=== PATIENT | female | born 1995 | race American Indian/Alaskan Native ===

== ENCOUNTER 2018-12-27 12:32 | Outpatient (CLI) | payer MEDICAID | END 2018-12-27 15:11 | disposition home or self-care (01) | LOC: LAB 12:32 → TRG 14:33 → LAB 15:11 | PROVIDERS: ATTEND Obstetrics & Gynecology | DX: O26.893 Other specified pregnancy related conditions, third trimester (principal); Z67.41 Type O blood, Rh negative; Z3A.26 26 weeks gestation of pregnancy | CPT/HCPCS: 86850; 86900; 86901; 96372; J2790 ==

== ENCOUNTER 2019-03-30 08:29 | Inpatient (IN) | payer MEDICAID ==
[2019-03-30] MEDS ORDERED: NARCAN 0.4 MG/1 ML IV PRN (10:32)
[2019-03-30] MEDS ORDERED: ZOFRAN IV PRN (10:32)
[2019-03-30] MEDS ORDERED: MINERAL OIL PO PRN (10:32)
[2019-03-30] MEDS ORDERED: XYLOCAINE 2% INFILTRATI ONE (10:32)
[2019-03-30] MEDS ORDERED: BRETHINE IVP PRN (10:32)
[2019-03-30] MEDS ORDERED: BRETHINE SUB-Q PRN (10:32)
[2019-03-30] MEDS ORDERED: AMPICILLIN/NS 2 GM/100 ML 2 GM/100 ML BAG IV ONE (10:37)
--- NOTE | 2019-03-30 10:38 | History and Physical Report ---
History of Present Illness Date of examination: 03/30/19 Date of admission: 03/30/19 08:29 Chief complaint: Presents for scheduled postdates induction of labor History of present illness: Late entry to care at 22 2/7 weeks, course complicated by RH neg (received Rhogam 12/28/18), Anemia, and Vitamin D Deficiency. 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) Family/Genetic History: heart disease, hypertension, cancer Social history: no significant social history, single, smoking (hx of THC use) - Obstetrical History Expected Date of Delivery: 03/21/19 Actual Gestation: 41 Week(s) 2 Day(s) : 3 Induced : 2 Medications and Allergies Allergies Allergy/AdvReac Type Severity Reaction Status Date / Time No Known Allergies Allergy Unverified 12/27/18 14:59 Home Medications Medication Instructions Recorded Confirmed Last Taken Type No Known Home Medications [No 12/27/18 12/27/18 Unknown History Reported Home Medications] - Vital Signs Vital signs: Vital Signs Pulse BP 72 122/68 03/30/19 09:06 03/30/19 09:06 Temp Pulse Resp BP Pulse Ox 72 122/68 03/30/19 09:06 03/30/19 09:06 - Physical Exam Breasts: Positive: normal Cardiovascular: Regular rate Lungs: Positive: Clear to auscultation, Normal air movement Abdomen: Positive: normal appearance, soft, normal bowel sounds Genitourinary (Female): Positive: normal external genitalia, normal perenium Vagina: Positive: normal moisture Uterus: Positive: enlarged Anus/Rectum: Positive: normal perianal skin Extremities: Positive: normal - Obstetrical FHR: category 1 Uterine Contraction Monitor Mode: External Cervical Dilatation: 1 Cervical Effacement Percentage: 60 station: -3 Uterine Contraction Pattern: Absent Uterine Tone Measurement Phase: Resting Results All other labs normal. Assessment and Plan A: IUP @ 41 2/7 Weeks Category I Tracing GBS Positive P: Admit to L&D per Routine Orders Cervidil Induction GBS Prophylaxis
[2019-03-30] MEDS ORDERED: PITOCin/NS 20 UNIT/1000ML DRIP 20 UNITS/1,000 ML BAG IV SCH (11:00)
[2019-03-30] MEDS ORDERED: CERVIDIL VG ONE (11:00)
[2019-03-30 11:03] LABS: Hematocrit 32.6 % (30.3-42.9); Hemoglobin 10.8 gm/dl (10.1-14.3); Mean Corpuscular HGB Conc 33 % (30-34); Mean Corpuscular Volume 80 fl (79-97); Platelet Count 192 K/mm3 (140-440); Red Blood Count 4.06 M/mm3 (3.65-5.03); Red Cell Distribution Width 16.2 % (13.2-15.2)
[2019-03-30] MEDS: LACTATED RINGERS 1,000 ML IV SCH (14:45)
--- NOTE | 2019-03-30 18:00 | Progress Note ---
Assessment and Plan A: IUP @ 41 2/7 Weeks Category I Tracing GBS Positive P: Continue Cervidil Induction Continue GBS Prophylaxis Subjective - Subjective Date of service: 03/30/19 Interval history: Late entry to care at 22 2/7 weeks, course complicated by RH neg (received Rhogam 12/28/18), Anemia, and Vitamin D Deficiency. Patient reports: movement normal Objective - Vital Signs Vital Signs: Vital Signs - 12hr 03/30/19 09:06 Pulse Rate 72 Blood Pressure 122/68 - Exam Cardiovascular: Regular rate Abdomen: Present: normal appearance, soft Uterus: Present: normal, firm, fundal height above umbilicus FHR: category 1 Uterine Contraction Monitor Mode: External Uterine Contraction Frequency (min): 1-3 Uterine Contraction Pattern: Regular Uterine Tone Measurement Phase: Resting Uterine Contraction Intensity: Mild Extremities: normal - Labs Labs: Abnormal Labs 03/30/19 10:45 MCH 27 L RDW 16.2 H Laboratory Results - last 24 hr 03/30/19 03/30/19 03/30/19 10:45 10:45 Unknown WBC 11.0 RBC 4.06 Hgb 10.8 Hct 32.6 MCV 80 MCH 27 L MCHC 33 RDW 16.2 H Plt Count 192 RPR Nonreactive Blood Type O NEGATIVE Antibody Screen Negative
[2019-03-30] MEDS: AMPICILLIN/NS 1 GM/50 ML 1 GM/50 ML BAG IV SCH (19:36)
[2019-03-31] MEDS ORDERED: PITOCin/NS 30 UNIT/500ML 30 UNITS/500 ML BAG IV SCH (01:00)
[2019-03-31] MEDS: STADOL IV PRN ×2 (03:16→07:28)
[2019-03-31] MEDS: AMPICILLIN/NS 1 GM/50 ML 1 GM/50 ML BAG IV SCH ×3 (03:19→12:56)
[2019-03-31] MEDS: LACTATED RINGERS 1,000 ML IV SCH ×2 (05:49→12:57)
--- NOTE | 2019-03-31 07:26 | Progress Note ---
Assessment and Plan A: IUP @ 41 3/7 Weeks Category I Tracing GBS Positive P: AROM Continue Pitocin Augmentation Continue GBS Prophylaxis Subjective - Subjective Date of service: 03/31/19 Interval history: Late entry to care at 22 2/7 weeks, course complicated by RH neg (received Rhogam 12/28/18), Anemia, and Vitamin D Deficiency. Patient reports: movement normal, contractions Objective - Vital Signs Vital Signs: Vital Signs - 12hr 03/31/19 03/31/19 03/31/19 03:16 03:29 04:16 Pulse Rate 76 Respiratory 18 18 Rate Blood Pressure 128/66 03/31/19 07:13 Pulse Rate 72 Respiratory Rate Blood Pressure 133/62 - Exam Breasts: normal Cardiovascular: Regular rate Lungs: Normal air movement Abdomen: Present: normal appearance, soft Uterus: Present: normal, firm, fundal height above umbilicus FHR: category 1 Uterine Contraction Monitor Mode: External Cervical Dilatation: 4 (Small amount of clear fluid upon AROM @ 0710) Cervical Effacement Percentage: 70 station: -2 Uterine Contraction Pattern: Regular Uterine Tone Measurement Phase: Resting Uterine Contraction Intensity: Moderate Extremities: normal - Labs Labs: Abnormal Labs 03/30/19 10:45 MCH 27 L RDW 16.2 H Laboratory Results - last 24 hr 03/30/19 03/30/19 03/30/19 10:45 10:45 Unknown WBC 11.0 RBC 4.06 Hgb 10.8 Hct 32.6 MCV 80 MCH 27 L MCHC 33 RDW 16.2 H Plt Count 192 RPR Nonreactive Blood Type O NEGATIVE Antibody Screen Negative
[2019-03-31] MEDS ORDERED: MARCAINE 0.25% INFILTRATI ONE (09:02)
[2019-03-31] MEDS ORDERED: SUBLIMAZE ONE (09:02)
[2019-03-31] MEDS ORDERED: NARCAN 2 MG/2 ML IV PRN (09:58)
--- NOTE | 2019-03-31 10:01 | Anesthesia Consultation ---
Anesthesia Consult and Med Hx Date of service: 03/31/19 - Airway Anesthetic Teeth Evaluation: Good ROM Head & Neck: Adequate Mental/Hyoid Distance: Adequate Mallampati Class: Class II - Pulmonary Exam CTA: Yes - Cardiac Exam Cardiac Exam: RRR - Pre-Operative Health Status ASA Pre-Surgery Classification: ASA2, Emergency Proposed Anesthetic Plan: Epidural - Pulmonary Hx Asthma: No - Cardiovascular System Hx Hypertension: No - Central Nervous System Hx Seizures: No Hx Psychiatric Problems: No - Endocrine Hx Renal Disease: No Hx Hypothyroidism: No Hx Hyperthyroidism: No - Hematic Hx Anemia: No Hx Sickle Cell Disease: No - Other Systems Hx Alcohol Use: Yes (not during )
[2019-03-31] MEDS ORDERED: fentaNYL-BUPIV 2 MCG/ML-0.125% 200 MCG/100 ML BAG EPIDURAL SCH (11:00)
[2019-03-31] MEDS ORDERED: METHERGINE IM ONE ×2 (14:57→17:44)
[2019-03-31] MEDS ORDERED: CYTOTEC ONE (14:58)
[2019-03-31] MEDS ORDERED: BENADRYL PO PRN (15:18)
[2019-03-31] MEDS ORDERED: TUCKS PAD TP PRN (15:18)
[2019-03-31] MEDS ORDERED: LANSINOH TP PRN (15:18)
[2019-03-31] MEDS ORDERED: DULCOLAX PR PRN (15:18)
[2019-03-31] MEDS ORDERED: TYLENOL PO PRN (15:18)
--- NOTE | 2019-03-31 15:26 | Procedure Note ---
OB Delivery Note - Delivery Date of Delivery: 03/31/19 (1450) Surgeon: MIKE BURNHAM Estimated blood loss: other (350) - Vaginal Delivery presentation: vertex Delivery position: OA Intrapartum events: extend. bradycardia, mult.variable deceleratio Delivery induction: cervidil Delivery augmentation: rupture of membranes, pitocin Delivery monitor: external FHT, external uterine Route of delivery: Delivery placenta: spontaneous Delivery cord: 3 umbilical vessels Episiotomy: none Delivery laceration: 1st degree Delivery repair: vicryl Anesthesia: epidural Delivery comments: of a live 7'7 female infant over a 1st degree vaginal laceration under epidural anesthesia with Apgars of 8 and 9 at 1450 on 03/31/2019. Infant directly to maternal abd/chest, skin to skin contact. Spontaneous delivery of placenta complete and intact with [place] side presenting@ 1454. Heavy uterine bleeding upon external uterine massage, 800mcg of Cytotec placed per rectum, Methergine 0.2mg given IM. Bleeding became scant. Vaginal laceration repaired with 2-[address]-1. Delayed cord clamping and cutting; Cord cut by Father of the baby. Cord blood collected. GBS prophylaxis x 5. Placenta discarded. - B at 1 minute: 8 at 5 minutes: 9 Gender: Female (7'7)
[2019-03-31] MEDS ORDERED: SODIUM CHLORIDE FLUSH SYRINGE 10 ML IV SCH (16:00)
--- NOTE | 2019-03-31 16:56 | Post Anesthesia Evaluation ---
- Post Anesthesia Evaluation Patient Participated: Yes Airway Patent: Yes Stable Respiratory Function: Yes Nausea/Vomiting: No Temp > 96.8F: Yes Pain Manageable: Yes Adequeate Hydration: Yes Anesthesia Complications: No Block Receding Appropriately: Yes Patient on Ventilator: No
[2019-03-31] MEDS ORDERED: CYTOTEC PR ONE (17:43)
[2019-03-31] MEDS: IBUPROFEN PO SCH (22:13)
[2019-04-01] MEDS: IBUPROFEN PO SCH ×4 (00:28→20:23)
[2019-04-01] MEDS: NORCO 5/325 PO PRN (02:16)
[2019-04-01 06:00] LABS: Hematocrit 29.6 % (30.3-42.9); Hemoglobin 9.7 gm/dl (10.1-14.3)
--- NOTE | 2019-04-01 11:11 | Progress Note ---
Assessment and Plan - Patient Problems (1) (normal spontaneous vaginal delivery) Current Visit: Yes Status: Acute Plan to address problem: Continue routine PP orders Anticipate d/c home in 24 hrs (2) Anemia Current Visit: Yes Status: Acute Qualifiers: Anemia type: iron deficiency Iron deficiency anemia type: inadequate dietary iron intake Qualified Code(s): D50.8 - Other iron deficiency anemias Subjective - Subjective Date of service: 04/01/19 (1110) Principal diagnosis: ; Anemia Interval history: See admission H & P; OB delivery summary Patient reports: appetite normal, voiding normally, pain well controlled, flatus, ambulating normally, no bowel movement [place]: doing well, bottle feeding (and ) Objective - Vital Signs Latest vital signs: Vital Signs Temp Temp Temp Pulse Resp BP BP 04/01/19 08:12 97.7 F 77 18 111/60 04/01/19 06:46 18 04/01/19 05:46 18 04/01/19 04:41 78 04/01/19 03:16 18 04/01/19 02:16 18 04/01/19 00:28 97.5 F L 18 102/58 04/01/19 00:23 97.9 F 82 18 128/71 03/31/19 23:13 18 03/31/19 22:13 18 03/31/19 20:45 79 03/31/19 20:43 98.0 F 20 138/70 03/31/19 16:30 64 20 115/63 03/31/19 16:22 76 132/77 03/31/19 16:07 83 129/75 03/31/19 15:44 99.6 F 100.2 F H 162 H 57 H 03/31/19 15:37 88 121/71 03/31/19 15:23 98.6 F 03/31/19 15:21 92 H 122/65 03/31/19 15:12 107 H 123/68 03/31/19 15:07 107 H 122/58 03/31/19 14:52 136 H 132/60 03/31/19 14:50 140 H 03/31/19 14:45 140 H 03/31/19 14:37 109 H 136/70 03/31/19 14:23 93 H 135/79 03/31/19 14:08 88 138/70 03/31/19 13:51 96 H 138/71 03/31/19 13:37 91 H 130/73 03/31/19 13:22 101 H 132/60 03/31/19 13:07 107 H 120/64 03/31/19 12:52 96 H 131/60 03/31/19 12:38 85 128/57 03/31/19 12:21 88 122/58 03/31/19 12:12 84 03/31/19 12:07 84 119/56 03/31/19 12:02 84 03/31/19 11:57 79 03/31/19 11:53 76 123/56 03/31/19 11:52 77 03/31/19 11:47 88 03/31/19 11:42 96 H 03/31/19 11:38 64 119/59 03/31/19 11:37 71 03/31/19 11:32 67 03/31/19 11:27 73 03/31/19 11:22 71 119/59 03/31/19 11:17 79 03/31/19 11:12 80 Pulse Ox 04/01/19 08:12 98 04/01/19 06:46 04/01/19 05:46 04/01/19 04:41 98 04/01/19 03:16 04/01/19 02:16 04/01/19 00:28 04/01/19 00:23 95 03/31/19 23:13 03/31/19 22:13 03/31/19 20:45 97 03/31/19 20:43 03/31/19 16:30 03/31/19 16:22 03/31/19 16:07 03/31/19 15:44 03/31/19 15:37 03/31/19 15:23 03/31/19 15:21 03/31/19 15:12 03/31/19 15:07 03/31/19 14:52 03/31/19 14:50 89 03/31/19 14:45 100 03/31/19 14:37 03/31/19 14:23 03/31/19 14:08 03/31/19 13:51 03/31/19 13:37 03/31/19 13:22 03/31/19 13:07 03/31/19 12:52 03/31/19 12:38 03/31/19 12:21 03/31/19 12:12 89 03/31/19 12:07 94 03/31/19 12:02 94 03/31/19 11:57 99 03/31/19 11:53 03/31/19 11:52 97 03/31/19 11:47 98 03/31/19 11:42 98 03/31/19 11:38 03/31/19 11:37 97 03/31/19 11:32 97 03/31/19 11:27 96 03/31/19 11:22 99 03/31/19 11:17 98 03/31/19 11:12 98 Intake and Output 03/31/19 04/01/19 04/01/19 23:59 07:59 15:59 Output Total 900 Balance -900 Output: Urine 900 Void 900 Other: Total, Output Amount 900 # Voids Void 1 - Exam Breasts: Present: normal Cardiovascular: Present: Regular rate Lungs: Present: Normal air movement Abdomen: Present: soft, normal bowel sounds Uterus: Present: firm, fundal height below umbilicus (U-1) Extremities: Present: normal Deep Tendon Reflex Grade: Normal +2 Incision: Present: dry, intact, other (1st degree laceration site healing as expected) - Labs Labs: Abnormal lab results 04/01/19 Range/Units 05:20 Hgb 9.7 L (10.1-14.3) gm/dl Hct 29.6 L (30.3-42.9) %
[2019-04-01] MEDS: FEOSOL PO SCH ×2 (13:50→22:07)
[2019-04-02] MEDS: NORCO 5/325 PO PRN (00:35)
[2019-04-02] MEDS: IBUPROFEN PO SCH ×3 (00:37→19:04)
--- NOTE | 2019-04-02 10:05 | Progress Note ---
Assessment and Plan A: day 2 S/P spontaneous vaginal delivery. Anemia secondary to and blood loss. P: Discharge patient home today. Patient to continue to take vitamins and iron supplements at home. discharge instructions and warning signs discussed with patient in detail. Advised patient to avoid intercourse, lifting and heavy housework, driving. Advised patient to follow up at [facility] in 6 weeks. Patient voiced understanding of all instructions. Subjective - Subjective Date of service: 04/02/19 Principal diagnosis: day 2 S/P spontaneous vaginal delivery Interval history: day 2 S/P spontaneous vaginal delivery. Doing well. Desires discharge home. Reports small amount of lochia. Voiding without difficulty, ambulating well, tolerating a regular diet. Patient denies headache, chest pain, cough, shortness of breath, leg pain, or heavy bleeding. Patient reports: appetite normal, voiding normally, pain well controlled, flatus, ambulating normally, no dizzy ambulation, no nauseated : doing well Objective - Vital Signs Latest vital signs: Vital Signs Temp Pulse Resp BP BP Pulse Ox 04/02/19 08:38 98.2 F 66 20 128/61 99 04/02/19 06:57 18 04/02/19 05:57 18 04/02/19 01:35 18 04/02/19 00:35 18 04/02/19 00:10 98.2 F 60 18 112/51 97 04/01/19 21:23 18 04/01/19 20:23 18 04/01/19 13:49 20 04/01/19 11:33 97.9 F 66 18 134/72 97 Intake and Output 04/01/19 04/02/19 04/02/19 23:59 07:59 15:59 Intake Total 1440 120 Output Total 3 Balance 1437 120 Intake: Oral 1440 120 Output: Urine 3 Void 3 Other: Total, Intake Amount 240 120 Total, Output Amount 3 # Voids Void 1 1 # Bowel Movements 0 - Exam Cardiovascular: Present: Regular rate, Normal S1, Normal S2 Lungs: Present: Clear to auscultation Abdomen: Present: normal appearance, soft. Absent: distention, tenderness, guarding, rigidity Uterus: Present: normal, firm, fundal height below umbilicus. Absent: bogginess, tenderness Extremities: Present: normal. Absent: tenderness, edema
--- NOTE | 2019-04-02 10:20 | Discharge Summary ---
Providers - Providers Date of Admission: 03/30/19 08:29 Date of discharge: 04/02/19 Attending physician: SANTIAGO DOMINGUEZ MD Primary care physician: SANTIAGO DOMINGUEZ MD Hospitalization Reason for admission: induction of labor Delivery: Episiotomy: none Other procedures: none complications: none Discharge diagnosis: IUP at term delivered [place] baby: female Pertinent studies: Labs Hospital course: Normal hospital course Condition at discharge: Good Disposition: DC-01 TO HOME OR SELFCARE - Discharge Diagnoses (1) Term delivered Status: Acute (2) Anemia due to blood loss Status: Acute Plan - Provider Discharge Summary Activity: routine, no sex for 6 weeks, no heavy lifting 4 weeks, no strenuous exercise Diet: routine Instructions: routine Additional instructions: Continue taking your vitamins and iron supplements at home. Call your doctor immediately for: * Fever > 100.5 * Heavy vaginal bleeding ( >1 pad per hour) * Severe persistent headache * Shortness of breath * Reddened, hot, painful area to leg or breast - Follow up plan Follow up: SANTIAGO DOMINGUEZ MD [Primary Care Provider] - 6 Weeks
[2019-04-02 16:56] VITALS: BP 116/69
[2019-04-02] MEDS ORDERED: IBUPROFEN PO ONE (19:32)
== END 2019-04-02 19:03 | disposition home or self-care (01) | DRG 775 ==
LOC: LD 08:29 → OB 03-31 16:33
PROVIDERS: ADMIT Obstetrics & Gynecology; ATTEND Obstetrics & Gynecology
PROC: 10E0XZZ Delivery of Products of Conception, External Approach (ICD-10-PCS; principal; 2019-03-31)
PROC: 3E0P7VZ Introduction of Hormone into Female Reproductive, Via Natural or Artificial Opening (ICD-10-PCS; 2019-03-31)
PROC: 3E0R3BZ Introduction of Anesthetic Agent into Spinal Canal, Percutaneous Approach (ICD-10-PCS; 2019-03-31)
PROC: 00HU33Z Insertion of Infusion Device into Spinal Canal, Percutaneous Approach (ICD-10-PCS; 2019-03-31)
PROC: 0HQ9XZZ Repair Perineum Skin, External Approach (ICD-10-PCS; 2019-03-31)
PROC: 10907ZC Drainage of Amniotic Fluid, Therapeutic from Products of Conception, Via Natural or Artificial Opening (ICD-10-PCS; 2019-03-31)
PROC: 3E0334Z Introduction of Serum, Toxoid and Vaccine into Peripheral Vein, Percutaneous Approach (ICD-10-PCS; 2019-04-01)
DX: O99.824 Streptococcus B carrier state complicating childbirth (principal); O48.0 Post-term pregnancy; D62 Acute posthemorrhagic anemia; O99.02 Anemia complicating childbirth; O76 Abnormality in fetal heart rate and rhythm complicating labor and delivery; O70.0 First degree perineal laceration during delivery; Z3A.41 41 weeks gestation of pregnancy; Z37.0 Single live birth; Z82.49 Family history of ischemic heart disease and other diseases of the circulatory system; Z80.9 Family history of malignant neoplasm, unspecified
CPT/HCPCS: 36415; 85014; 85018; 85027; 85461; 86592; 86850; 86900; 86901; G0378; J0290; J0595; J2210; J2590; J2790; J3010; J7120